=== PATIENT | male | born 1995 | race African-American/Black ===

== ENCOUNTER 2017-02-25 00:08 | Emergency (ER) | payer MEDICAID ==
[~2017-02-25] VITALS: Ht 188 cm; Wt 56.7 kg
[2017-02-25 00:19] VITALS: BP 107/59
[2017-02-25] MEDS ORDERED: ACETAMINOPHEN ES 500 MG TABLET PO ONE (01:00)
== END 2017-02-25 00:46 | disposition home or self-care (01) ==
LOC: ER 00:10
DX: H61.22 Impacted cerumen, left ear (principal); R51 Headache; F41.9 Anxiety disorder, unspecified; F17.200 Nicotine dependence, unspecified, uncomplicated; Z88.8 Allergy status to other drugs, medicaments and biological substances
CPT/HCPCS: 99282; A4606; Z7610

== ENCOUNTER 2017-09-07 17:17 | Emergency (ER) | payer MEDICAID, OTHER ==
[~2017-09-07] VITALS: Ht 188 cm; Wt 52.2 kg
[2017-09-07 17:28] VITALS: BP 138/68
[2017-09-07] MEDS ORDERED: LIDOCAINE VISCOUS 2% UD 15 ML UDC MM ONE (18:00)
[2017-09-07] MEDS ORDERED: IBUPROFEN 400 MG TABLET PO ONE (18:00)
[2017-09-07] MEDS ORDERED: ACETAMINOPHEN 325 MG TABLET PO ONE (18:00)
[2017-09-07] MEDS ORDERED: LIDOCAINE VISCOUS 2% UD 15 ML UDC ONE (18:01)
[2017-09-07] MEDS ORDERED: ACETAMINOPHEN 325 MG TABLET ONE (18:01)
[2017-09-07] MEDS ORDERED: IBUPROFEN 400 MG TABLET ONE (18:01)
== END 2017-09-07 19:17 | disposition home or self-care (01) ==
LOC: ER 17:19
DX: S92.252A Displaced fracture of navicular [scaphoid] of left foot, initial encounter for closed fracture (principal); S09.93XA Unspecified injury of face, initial encounter; F12.90 Cannabis use, unspecified, uncomplicated; F41.9 Anxiety disorder, unspecified; F43.10 Post-traumatic stress disorder, unspecified; F17.200 Nicotine dependence, unspecified, uncomplicated; Z88.8 Allergy status to other drugs, medicaments and biological substances; Z72.0 Tobacco use; Y04.0XXA Assault by unarmed brawl or fight, initial encounter; Y93.89 Activity, other specified; Y92.89 Other specified places as the place of occurrence of the external cause; Y99.9 Unspecified external cause status
CPT/HCPCS: 29125; 73110; 99284; A4606; Z7610

== ENCOUNTER 2019-05-18 09:41 | Emergency (ER) | payer OTHER ==
[~2019-05-18] VITALS: Ht 188 cm; Wt 50.3 kg
--- NOTE | 2019-05-18 09:51 | NUR ---
CALLED TO TRIAGE,NO ANSWER
--- NOTE | 2019-05-18 10:00 | NUR ---
CAME IN FOR EPIGASTRIC PAIN, VOMITING AND DIARRHEA X 2 DAYS. TO ER BED 11, HOOKED TO MONITOR, CHANGED TO GOWN, PROVIDED W WARM BLANKET, AWAITING MD MELCHOR
--- NOTE | 2019-05-18 10:01 | NUR ---
DR GONZALES AT BEDSIDE
[2019-05-18] MEDS ORDERED: ONDANSETRON HCL/PF 4 MG/2 ML VIAL ONE (10:24)
[2019-05-18 10:28] LABS: BASOPHILS % (AUTO) 0.4 % (0.0-2.0); HEMATOCRIT 48 % (39-51); HEMOGLOBIN 15.9 g/dL (13.5-17.5); LYMPHOCYTES # (AUTO) 1.1 /CMM (0.8-4.8); LYMPHOCYTES % (AUTO) 18.6 % (20.0-44.0); MEAN CORPUSCULAR HGB CONC 33 g/dl (31.0-36.0); MEAN CORPUSCULAR VOLUME 87 fL (80-96); MONOCYTES # (AUTO) 0.8 /CMM (0.1-1.30); MONOCYTES % (AUTO) 14.4 % (2.0-12.0); NEUTROPHILS # (AUTO) 3.6 /CMM (1.8-8.9); NEUTROPHILS % (AUTO) 63.6 % (43.0-81.0); PLATELET COUNT (AUTO) 264 /CMM (150-450); RED BLOOD CELL COUNT(AUTO) 5.52 MIL/uL (4.5-6.0); WHITE BLOOD COUNT (AUTO) 5.7 K/uL (4.3-11.0)
[2019-05-18] MEDS ORDERED: IV NS 0.9% 1,000 ML BAG IV ONE (10:30)
[2019-05-18] MEDS ORDERED: ONDANSETRON HCL/PF 4 MG/2 ML VIAL IVP ONE (10:30)
[2019-05-18 10:36] LABS: CALCIUM, SERUM 8.9 mg/dL (8.5-10.1); POTASSIUM 3.6 mmol/L (3.5-5.1)
[2019-05-18 10:42] LABS: ALBUMIN 3.9 g/dL (3.4-5.0); BILIRUBIN,DIRECT 0.1 mg/dL (0.0-0.2); BILIRUBIN,TOTAL 0.5 mg/dL (0.2-1.0); TOTAL PROTEIN, SERUM 7.3 g/dL (6.4-8.2)
--- NOTE | 2019-05-18 11:59 | NUR ---
IV removed. Catheter intact and site benign. Pressure and 4x4 applied to site. No bleeding noted.Patient discharged to home in stable condition. Written and verbal after care instructions given. Patient verbalizes understanding of instruction.
[2019-05-18 12:03] VITALS: BP 100/58
== END 2019-05-18 12:04 | disposition home or self-care (01) ==
LOC: ER 09:41
DX: R11.10 Vomiting, unspecified (principal); R19.7 Diarrhea, unspecified; E86.0 Dehydration; F41.9 Anxiety disorder, unspecified; F43.10 Post-traumatic stress disorder, unspecified; F17.200 Nicotine dependence, unspecified, uncomplicated; F12.10 Cannabis abuse, uncomplicated; Z91.09 Other allergy status, other than to drugs and biological substances; Z88.8 Allergy status to other drugs, medicaments and biological substances
CPT/HCPCS: 36415; 80048; 80076; 83690; 85025; 96361; 96374; 99283; J2405; J7030

== ENCOUNTER 2019-05-20 05:37 | Emergency (ER) | payer OTHER ==
[~2019-05-20] VITALS: Ht 188 cm; Wt 70.3 kg
--- NOTE | 2019-05-20 05:49 | NUR ---
BIBSELF FROM HOME WITH GRANDMOTHER AT BEDSIDE. AAOX4. NO RESP DISTRESS, BREATHING EVEN AND UNLABORED. AMBULATORY. C/O VOMITING AND DIARRHEA X 4 DAYS. PT REPORTS THAT HE HAS BEEN HERE 2 DAYS AGO FOR ANNIKA SAME REASON. PT REPORTS THAT HIS VOMIT IS FLUID. DIARRHEA REPORTED A WATTERY YELLOW STOOL, X5 SINCE MIDNIGHT. PT REPORTS THAT HE ANUS IS BURNING D/T CONSTANT WIPPING FROM DIARRHEA. TO ER BED 11. AWAITING MD FOR EVAL.
--- NOTE | 2019-05-20 05:49 | NUR ---
Note undone in EDM - 05/20/19 at 0602 by JERMAIN BIBSELF WITH MOTHER AT BEDSIDE. AAOX4. NO RESP DISTRESS, BREATHING EVEN AND UNLABORED. AMBULATORY. C/O VOMITING AND DIARRHEA X 4 DAYS. PT REPORTS THAT HE HAS BEEN HERE 2 DAYS AGO FOR ANNIKA SAME REASON. PT REPORTS THAT HIS VOMIT IS FLUID. DIARRHEA REPORTED A WATTERY YELLOW STOOL, X5 SINCE MIDNIGHT. PT REPORTS THAT HE ANUS IS BURNING D/T CONSTANT WIPPING FROM DIARRHEA. TO ER BED 11. AWAITING MD FOR JILL.
[2019-05-20 05:59] VITALS: BP 124/92
--- NOTE | 2019-05-20 06:17 | NUR ---
LAB AT BEDSIDE FOR BLOOD DRAW
[2019-05-20 06:27] LABS: BASOPHILS % (AUTO) 0.2 % (0.0-2.0); EOSINOPHILS % (AUTO) 2.1 % (0.0-6.0); HEMATOCRIT 48 % (39-51); HEMOGLOBIN 15.9 g/dL (13.5-17.5); LYMPHOCYTES # (AUTO) 1.3 /CMM (0.8-4.8); LYMPHOCYTES % (AUTO) 15.7 % (20.0-44.0); MEAN CORPUSCULAR HGB CONC 33 g/dl (31.0-36.0); MEAN CORPUSCULAR VOLUME 87 fL (80-96); PLATELET COUNT (AUTO) 283 /CMM (150-450); RED BLOOD CELL COUNT(AUTO) 5.56 MIL/uL (4.5-6.0); WHITE BLOOD COUNT (AUTO) 8.6 K/uL (4.3-11.0)
[2019-05-20 06:34] LABS: CALCIUM, SERUM 8.9 mg/dL (8.5-10.1); CREATININE 0.9 mg/dL (0.6-1.3)
[2019-05-20 06:44] LABS: ALBUMIN 4.2 g/dL (3.4-5.0); BILIRUBIN,DIRECT 0.1 mg/dL (0.0-0.2); BILIRUBIN,TOTAL 0.5 mg/dL (0.2-1.0); TOTAL PROTEIN, SERUM 7.6 g/dL (6.4-8.2)
--- NOTE | 2019-05-20 06:47 | NUR ---
Patient discharged to home in stable condition. Written and verbal after care instructions given. Patient verbalizes understanding of instruction. Pt ambulatory with a steady gait
== END 2019-05-20 06:47 | disposition home or self-care (01) ==
LOC: ER 05:39
DX: R19.7 Diarrhea, unspecified (principal); R11.10 Vomiting, unspecified; F41.9 Anxiety disorder, unspecified; F43.10 Post-traumatic stress disorder, unspecified; F17.200 Nicotine dependence, unspecified, uncomplicated; F12.10 Cannabis abuse, uncomplicated; Z90.89 Acquired absence of other organs; Z88.8 Allergy status to other drugs, medicaments and biological substances
CPT/HCPCS: 36415; 80048-TC; 80076-TC; 83690-TC; 85025-TC

== ENCOUNTER 2019-12-30 15:34 | Emergency (ER) | payer OTHER ==
[~2019-12-30] VITALS: Ht 188 cm; Wt 59.0 kg
[2019-12-30 16:04] VITALS: BP 113/83
--- NOTE | 2019-12-30 16:17 | NUR ---
SEEN AND EXAMINED BY MEGHAN SANFORD
[2019-12-30] MEDS ORDERED: TRAMADOL HCL 50 MG TABLET PO ONE (16:30)
[2019-12-30] MEDS ORDERED: TRAMADOL HCL 50 MG TABLET ONE (16:39)
--- NOTE | 2019-12-30 16:40 | NUR ---
PT IS WHEELED TO RADIOLOGY.
--- NOTE | 2019-12-30 18:02 | NUR ---
Patient discharged to home in stable condition. Written and verbal after care instructions given. Patient verbalizes understanding of instruction.
== END 2019-12-30 18:03 | disposition home or self-care (01) ==
LOC: ER 15:43
DX: M25.532 Pain in left wrist (principal); F17.200 Nicotine dependence, unspecified, uncomplicated; F12.10 Cannabis abuse, uncomplicated; Z90.89 Acquired absence of other organs; Z88.8 Allergy status to other drugs, medicaments and biological substances
CPT/HCPCS: 73110

== ENCOUNTER 2021-01-14 12:06 | Emergency (ER) | payer OTHER ==
[~2021-01-14] VITALS: Ht 188 cm; Wt 54.4 kg
[2021-01-14 12:15] VITALS: BP 131/76
[2021-01-14] MEDS ORDERED: NEOM10DR11 OT (12:26)
--- NOTE | 2021-01-14 12:31 | NUR ---
Patient discharged to home in stable condition. Written and verbal after care instructions given. Patient verbalizes understanding of instruction.
== END 2021-01-14 12:32 | disposition home or self-care (01) ==
LOC: ER 12:10
DX: H60.93 Unspecified otitis externa, bilateral (principal); F41.9 Anxiety disorder, unspecified; F43.10 Post-traumatic stress disorder, unspecified; F17.200 Nicotine dependence, unspecified, uncomplicated; Z90.89 Acquired absence of other organs; Z88.8 Allergy status to other drugs, medicaments and biological substances; Z79.899 Other long term (current) drug therapy

== ENCOUNTER 2022-11-07 19:47 | Emergency (ER) | payer OTHER ==
[~2022-11-07] VITALS: Ht 188 cm; Wt 65.8 kg
[~2022-11-07 19:47] MED LIST: NEOM10DR11 OT
[2022-11-07 20:06] VITALS: BP 122/70
--- NOTE | 2022-11-07 20:06 | NUR ---
BIBSELF FROM HOME C/O ACHE LEFT WRIST FOR THE PAST YEAR. PT A/OX4. TOLERATING R/A WELL WITH NO RESP DISTRESS. SAFETY MEASURES IN PLACE.
--- NOTE | 2022-11-07 21:19 | NUR ---
POSTBED STITCHER AT PT'S BEDSIDE
--- NOTE | 2022-11-07 22:12 | NUR ---
Patient discharged to home in stable condition. Written and verbal after care instructions given. Patient verbalizes understanding of instruction. PT ambulatory with a steady gait
== END 2022-11-07 22:13 | disposition home or self-care (01) ==
LOC: ER 19:48
DX: S62.012K Displaced fracture of distal pole of navicular [scaphoid] bone of left wrist, subsequent encounter for fracture with nonunion (principal); M25.532 Pain in left wrist; F41.9 Anxiety disorder, unspecified; F17.200 Nicotine dependence, unspecified, uncomplicated; Z90.89 Acquired absence of other organs; Z88.5 Allergy status to narcotic agent; Y93.51 Activity, roller skating (inline) and skateboarding; X58.XXXA Exposure to other specified factors, initial encounter; Y93.89 Activity, other specified; Y92.89 Other specified places as the place of occurrence of the external cause; Y99.8 Other external cause status
CPT/HCPCS: 73110

== ENCOUNTER 2023-04-17 01:39 | Emergency (ER) | payer OTHER ==
[~2023-04-17] VITALS: Ht 188 cm; Wt 59.0 kg
--- NOTE | 2023-04-17 02:40 | NUR ---
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 PSYCHIATRIC HX AND NOT TAKING MEDICATIONS. PT AWAKE AND ALERT, RESTLESS AND UNCOOPERATIVE WITH EXAMINATION. PER GRANDMOTHER PT ENDORSED SI, HOWEVER ON EXAM PT NOT ANSWERING RN. BIZZARE AFFECT AND DISHEVELED APPEARANCE. PT ASSISTED TO BED 13, CHANGED INTO GOWN AND BELONGINGS PLACED IN LOCKER. URINE SAMPLE AND COVID TEST COLLECTED AND SENT TO LAB. SAFETY MEASURES IN PLACE.
--- NOTE | 2023-04-17 03:03 | NUR ---
PT SEEN BY ART CRISIS TEAM; RECOMMENDED PT TO BE EVALUATED BY UMBRELLA SUPERVISOR
--- NOTE | 2023-04-17 03:07 | NUR ---
COVID AND ANTIGEN SWAB COLLECTED AND SENT TO LAB
[2023-04-17] MEDS ORDERED: OLANZAPINE 10 MG VIAL IM ONE ×4 (03:30→22:00)
--- NOTE | 2023-04-17 03:54 | NUR ---
PT REFUSED BLOOD DRAW AT THIS TIME. PT AFRAID OF NEEDLES. DOCUMENTUM CONSULTANT WILL TRY AGAIN LATER
[2023-04-17 03:59] LABS: BILIRUBIN,URINE NEGATIVE (NEGATIVE); COLOR,URINE DARK YELLOW (YELLOW); LEUKOCYTE ESTERASE ,URINE NEGATIVE (NEGATIVE); NITRITE, URINE NEGATIVE (NEGATIVE); PROTEIN,URINE NEGATIVE (NEGATIVE); UGLUCOSE NEGATIVE (NEGATIVE); UROBILINOGEN,URINE 0.2 EU/dL (0.2)
[2023-04-17 04:01] LABS: BACTERIA,URINE Rare /HPF (None Seen); RBC,URINE 0-2 /HPF (0-2); SQUAMOUS EPITHELIAL CELL,UR Few /HPF (None Seen); WBC,URINE 0-2 /HPF (0-3)
--- NOTE | 2023-04-17 04:40 | NUR ---
Aristeo aguirre in [facility] - 04/17/23 at 0707 by NEERU FAXED CLINICALS TO [facility] FAX [phone]
--- NOTE | 2023-04-17 09:00 | NUR ---
Dr Jolly in to see patient remains uncooperative and refuses to answer questions. Gets easily agitated and angry/verbally obnoxious/cussing and calling providers names
--- NOTE | 2023-04-17 09:00 | NUR ---
Was supposed to be discharged but during discharge process stated "I am now suicidal if anything happens to me out there its your fault"
[2023-04-17 10:24] LABS: CALCIUM, SERUM 9.1 mg/dL (8.5-10.1); CARBON DIOXIDE 26 mmol/L (21-32); CHLORIDE 107 mmol/L (98-107); CREATININE 0.7 mg/dL (0.6-1.3); GLUCOSE 97 mg/dL (74-106); POTASSIUM 3.7 mmol/L (3.5-5.1); SODIUM SERUM 140 mmol/L (136-145); UREA NITROGEN, BLOOD 9 mg/dL (7-18)
[2023-04-17 10:30] LABS: ALANINE AMINOTRANSFERASE 50 U/L (12-78); ALBUMIN 3.8 g/dL (3.4-5.0); ALCOHOL, BLOOD < 3 mg/dL (0-10); ALKALINE PHOSPHATASE 84 U/L (46-116); ASPARTATE AMINOTRANSFERASE 12 U/L (15-37); BILIRUBIN,DIRECT 0.3 mg/dL (0.0-0.2); BILIRUBIN,TOTAL 1.4 mg/dL (0.2-1.0); TOTAL PROTEIN, SERUM 6.7 g/dL (6.4-8.2)
[2023-04-17 10:57] LABS: BASOPHILS % (AUTO) 0.7 % (0.0-2.0); EOSINOPHILS % (AUTO) 2.6 % (0.0-6.0); HEMATOCRIT 41 % (39-51); HEMOGLOBIN 13.5 g/dL (13.5-17.5); LYMPHOCYTES # (AUTO) 1.8 K/uL (0.8-4.8); LYMPHOCYTES % (AUTO) 34.7 % (20.0-44.0); MEAN CORPUSCULAR HGB CONC 33 g/dl (31.0-36.0); MEAN CORPUSCULAR VOLUME 86 fL (80-96); MONOCYTES # (AUTO) 0.6 K/uL (0.1-1.30); MONOCYTES % (AUTO) 11.4 % (2.0-12.0); NEUTROPHILS # (AUTO) 2.6 K/uL (1.8-8.9); NEUTROPHILS % (AUTO) 50.6 % (43.0-81.0); PLATELET COUNT (AUTO) 288 K/uL (150-450); RED BLOOD CELL COUNT(AUTO) 4.77 MIL/uL (4.5-6.0); WHITE BLOOD COUNT (AUTO) 5.2 K/uL (4.3-11.0)
--- NOTE | 2023-04-17 12:05 | NUR ---
SW CONSULT: SW atteptemted to wake the patient up. The patient did not respond. Will attempt later.
--- NOTE | 2023-04-17 13:00 | NUR ---
Lunch provided. Status quo NAD
--- NOTE | 2023-04-17 16:30 | NUR ---
Sleeping Soundly Respirations even and unlabored
--- NOTE | 2023-04-17 18:20 | NUR ---
Awaiting re-evaluation and medical clearance- Disposition to a psych facility. Dr Ch made aware. Grand parent calls and requesting to be notified when patient transfers regardless of time
[2023-04-17 18:31] VITALS: BP 116/85
--- NOTE | 2023-04-17 18:36 | NUR ---
[facility] [phone].
--- NOTE | 2023-04-17 20:47 | NUR ---
DEBBIE PERALES CRISIS TEAM AT PT'S BEDSIDE
--- NOTE | 2023-04-17 22:24 | NUR ---
ACCEPTED TO [facility] UNDER DR OLMOS [phone] [facility] ETA 40 MIN
--- NOTE | 2023-04-17 22:58 | NUR ---
REPORT GIVEN TO JENNI OLSON FOR [facility] FOR [facility]. [facility] AT PT'S BEDSIDE TO TRANSFER PT TO [facility].
== END 2023-04-18 00:10 ==
LOC: ER 01:42
DX: R46.1 Bizarre personal appearance (principal); Z79.899 Other long term (current) drug therapy; Z20.822 Contact with and (suspected) exposure to COVID-19; Z88.1 Allergy status to other antibiotic agents
CPT/HCPCS: 99285; 96372 ×2; 85025; 80048; 80076; 81001; 36415; 87426; 80143; 80320; 80307; J3490 ×2; C9803; G0480

== ENCOUNTER 2023-12-05 14:40 | Emergency (ER) | payer OTHER ==
[~2023-12-05] VITALS: Ht 188 cm; Wt 65.3 kg
[2023-12-05] MEDS ORDERED: ONDANSETRON HCL/PF 4 MG/2 ML VIAL ONE (15:17)
[2023-12-05 15:29] LABS: BASOPHILS % (AUTO) 0.7 % (0.0-2.0); EOSINOPHILS # (AUTO) 0.1 K/uL (0.0-0.7); EOSINOPHILS % (AUTO) 2.2 % (0.0-6.0); HEMATOCRIT 44 % (39-51); HEMOGLOBIN 14.7 g/dL (13.5-17.5); LYMPHOCYTES # (AUTO) 1.8 K/uL (0.8-4.8); LYMPHOCYTES % (AUTO) 28.2 % (20.0-44.0); MEAN CORPUSCULAR HEMOGLOBIN 28 PG (26.0-33.0); MEAN CORPUSCULAR HGB CONC 33 g/dl (31.0-36.0); MEAN CORPUSCULAR VOLUME 85 fL (80-96); MONOCYTES # (AUTO) 0.6 K/uL (0.1-1.30); NEUTROPHILS # (AUTO) 3.7 K/uL (1.8-8.9); NEUTROPHILS % (AUTO) 58.9 % (43.0-81.0); PLATELET COUNT (AUTO) 294 K/uL (150-450); RED BLOOD CELL COUNT(AUTO) 5.18 MIL/uL (4.5-6.0); RED CELL DISTRIBUTION WIDTH 13.8 % (11.5-15.0); WHITE BLOOD COUNT (AUTO) 6.2 K/uL (4.3-11.0)
[2023-12-05] MEDS ORDERED: IV NS 0.9% 1,000 ML BAG IV ONE (15:30)
[2023-12-05] MEDS ORDERED: ONDANSETRON HCL/PF 4 MG/2 ML VIAL IVP ONE (15:30)
[2023-12-05 15:44] LABS: CALCIUM, SERUM 8.9 mg/dL (8.5-10.1); CREATININE 0.7 mg/dL (0.6-1.3); POTASSIUM 4.4 mmol/L (3.5-5.1)
[2023-12-05 15:50] LABS: ALBUMIN 3.8 g/dL (3.4-5.0); BILIRUBIN,TOTAL 0.9 mg/dL (0.2-1.0); TOTAL PROTEIN, SERUM 7.6 g/dL (6.4-8.2)
[2023-12-05] MEDS ORDERED: ONDANSETRON 4 MG TAB.RAPDIS ONE (16:55)
[2023-12-05] MEDS ORDERED: ONDANSETRON 4 MG TAB.RAPDIS SL ONE (17:00)
[2023-12-05 18:27] VITALS: BP 121/70; TEMP 98.4; O2SAT 98
== END 2023-12-05 18:27 | disposition home or self-care (01) ==
LOC: ER 14:43
DX: R56.9 Unspecified convulsions (principal); F41.9 Anxiety disorder, unspecified; Z90.89 Acquired absence of other organs; Z88.8 Allergy status to other drugs, medicaments and biological substances
CPT/HCPCS: 99284; 70450; 93005; 85025; 80048; 80076; 36415; J7030; Q0162; J2405

== ENCOUNTER 2024-05-29 14:51 | Emergency (ER) | payer OTHER ==
[~2024-05-29] VITALS: Ht 180.3 cm; Wt 54.4 kg
[2024-05-29] MEDS ORDERED: OLANZAPINE 5 MG TABLET ONE (15:27)
[2024-05-29] MEDS: OLANZAPINE ZYDIS 5 MG TAB.RAPDIS PO ONE (15:31)
[2024-05-29 16:24] LABS: BASOPHILS % (AUTO) 0.6 % (0.0-2.0); EOSINOPHILS # (AUTO) 0.1 K/uL (0.0-0.7); EOSINOPHILS % (AUTO) 1.9 % (0.0-6.0); HEMATOCRIT 39 % (39-51); HEMOGLOBIN 12.7 g/dL (13.5-17.5); LYMPHOCYTES # (AUTO) 2.6 K/uL (0.8-4.8); LYMPHOCYTES % (AUTO) 35.1 % (20.0-44.0); MEAN CORPUSCULAR HEMOGLOBIN 28 PG (26.0-33.0); MEAN CORPUSCULAR HGB CONC 33 g/dl (31.0-36.0); MEAN CORPUSCULAR VOLUME 86 fL (80-96); MONOCYTES # (AUTO) 0.7 K/uL (0.1-1.30); MONOCYTES % (AUTO) 9.7 % (2.0-12.0); NEUTROPHILS # (AUTO) 3.9 K/uL (1.8-8.9); NEUTROPHILS % (AUTO) 52.7 % (43.0-81.0); PLATELET COUNT (AUTO) 289 K/uL (150-450); RED BLOOD CELL COUNT(AUTO) 4.51 MIL/uL (4.5-6.0); RED CELL DISTRIBUTION WIDTH 13.4 % (11.5-15.0); WHITE BLOOD COUNT (AUTO) 7.3 K/uL (4.3-11.0)
[2024-05-29 16:31] LABS: CALCIUM, SERUM 8.3 mg/dL (8.5-10.1); CREATININE 0.9 mg/dL (0.6-1.3); POTASSIUM 3.7 mmol/L (3.5-5.1)
[2024-05-29 16:37] LABS: ALBUMIN 3.2 g/dL (3.4-5.0); BILIRUBIN,DIRECT 0.1 mg/dL (0.0-0.2); BILIRUBIN,TOTAL 0.3 mg/dL (0.2-1.0); SALICYLATE 2.8 mg/dL (2.8-20.0); TOTAL PROTEIN, SERUM 6.3 g/dL (6.4-8.2)
[2024-05-29 19:47] LABS: APPEARANCE,URINE CLEAR (CLEAR); BILIRUBIN,URINE NEGATIVE (NEGATIVE); BLOOD, URINE 1+ Ery/uL (NEGATIVE); COLOR,URINE YELLOW (YELLOW); KETONES,URINE NEGATIVE (NEGATIVE); LEUKOCYTE ESTERASE ,URINE NEGATIVE (NEGATIVE); NITRITE, URINE NEGATIVE (NEGATIVE); PROTEIN,URINE NEGATIVE (NEGATIVE); UGLUCOSE NEGATIVE (NEGATIVE); UROBILINOGEN,URINE 0.2 EU/dL (0.2)
[2024-05-29 19:50] LABS: ADD URINE CULTURE NO; BACTERIA,URINE None seen /HPF (None Seen); SQUAMOUS EPITHELIAL CELL,UR 0-2 /HPF (None Seen); WBC,URINE 0-2 /HPF (0-3)
[2024-05-29 20:05] LABS: AMPHETAMINE, URINE POSITIVE (NEGATIVE); BARBITURATE, URINE NEGATIVE (NEGATIVE); BENZODIAZEPINE, URINE NEGATIVE (NEGATIVE); COCCAINE, URINE NEGATIVE (NEGATIVE); OPIATE, URINE NEGATIVE (NEGATIVE); PHENCYCLIDINE SCREEN,URINE NEGATIVE (NEGATIVE)
[2024-05-29 20:09] LABS: CANNABINOID, URINE POSITIVE (NEGATIVE)
[2024-05-30 12:00] VITALS: BP 137/55; TEMP 98.4; O2SAT 98
== END 2024-05-30 14:29 ==
LOC: ER 15:04
DX: F15.10 Other stimulant abuse, uncomplicated (principal); F10.10 Alcohol abuse, uncomplicated; Z90.49 Acquired absence of other specified parts of digestive tract; Z79.899 Other long term (current) drug therapy; Z20.822 Contact with and (suspected) exposure to COVID-19; Z88.1 Allergy status to other antibiotic agents; Y90.6 Blood alcohol level of 120-199 mg/100 ml
CPT/HCPCS: 36415; 80048-TC; 80076-TC; 81001; 85025-TC; 98960; G0480

== ENCOUNTER 2024-12-25 03:06 | Emergency (ER) | payer MEDICARE, OTHER ==
[~2024-12-25] VITALS: Ht 188 cm; Wt 63.5 kg
[2024-12-25 03:30] VITALS: BP 132/78; TEMP 98; O2SAT 98
[2024-12-25] MEDS ORDERED: AMOX500T2 PO (06:29)
[2024-12-25] MEDS: AMOXICILLIN TRIHYDRATE 500 MG CAPSULE PO ONE (06:30)
[2024-12-25] MEDS: IBUPROFEN 600 MG TABLET PO ONE (06:30)
[2024-12-25] MEDS ORDERED: AMOXICILLIN TRIHYDRATE 250 MG CAPSULE ONE (06:31)
[2024-12-25] MEDS ORDERED: IBUPROFEN 600 MG TABLET ONE (06:31)
== END 2024-12-25 06:41 | disposition home or self-care (01) ==
LOC: ER 03:14
DX: H66.92 Otitis media, unspecified, left ear (principal); F17.200 Nicotine dependence, unspecified, uncomplicated; G40.909 Epilepsy, unspecified, not intractable, without status epilepticus; Z59.00 Homelessness unspecified; Z90.49 Acquired absence of other specified parts of digestive tract

== ENCOUNTER 2025-03-24 15:56 | Emergency (ER) | payer MEDICARE, OTHER ==
[~2025-03-24] VITALS: Ht 188 cm; Wt 61.2 kg
[~2025-03-24 15:56] MED LIST changes: +AMOX500T2 PO
[2025-03-24] MEDS ORDERED: IBUP-1490 PO (16:58)
[2025-03-24] MEDS ORDERED: KETOROLAC TROMETHAMINE 15 MG/ML VIAL ONE (17:10)
[2025-03-24] MEDS: KETOROLAC TROMETHAMINE 15 MG/ML VIAL IM ONE (17:17)
[2025-03-24 18:57] VITALS: BP 101/58; TEMP 98.3; O2SAT 95
== END 2025-03-24 18:57 | disposition home or self-care (01) ==
LOC: ER 16:00
DX: M54.50 Low back pain, unspecified (principal); R07.89 Other chest pain; F17.200 Nicotine dependence, unspecified, uncomplicated; Z79.899 Other long term (current) drug therapy; Z90.49 Acquired absence of other specified parts of digestive tract; Z88.8 Allergy status to other drugs, medicaments and biological substances; W01.0XXA Fall on same level from slipping, tripping and stumbling without subsequent striking against object, initial encounter; Y93.89 Activity, other specified; Y92.89 Other specified places as the place of occurrence of the external cause; Y99.8 Other external cause status
CPT/HCPCS: 99285; 96372; 71111; J1885

== ENCOUNTER 2025-04-12 12:45 | Emergency (ER) | payer MEDICARE, OTHER ==
[~2025-04-12] VITALS: Ht 188 cm; Wt 61.2 kg
[~2025-04-12 12:45] MED LIST changes: +IBUP-1490 PO
[2025-04-12 13:30] VITALS: BP 104/70; TEMP 97.9
[2025-04-12] MEDS ORDERED: IBUP-1955 PO (15:34)
[2025-04-12] MEDS ORDERED: METH4TAB17 PO (15:34)
[2025-04-12] MEDS: KETOROLAC TROMETHAMINE 15 MG/ML VIAL IM ONE (15:48)
[2025-04-12] MEDS ORDERED: KETOROLAC TROMETHAMINE 15 MG/ML VIAL ONE (15:54)
[2025-04-12 16:38] VITALS: O2SAT 95
== END 2025-04-12 16:39 | disposition home or self-care (01) ==
LOC: ER 13:04
DX: M54.42 Lumbago with sciatica, left side (principal); R20.2 Paresthesia of skin; F12.90 Cannabis use, unspecified, uncomplicated; F17.200 Nicotine dependence, unspecified, uncomplicated; G40.909 Epilepsy, unspecified, not intractable, without status epilepticus; Z90.49 Acquired absence of other specified parts of digestive tract; Z79.899 Other long term (current) drug therapy
CPT/HCPCS: 99285; 72131; 96372; 73590; J1885